=== PATIENT | female | born 1950 | race Caucasian/White ===

== ENCOUNTER 2017-09-04 22:14 | Inpatient (IN) | payer OTHER ==
[~2017-09-04] VITALS: Ht 154.9 cm; Wt 84.1 kg
--- NOTE | ~2017-09-04 | EKG ---
[place], [place] ELECTROCARDIOGRAM REPORT NAME: WILLIAN MENDOZA UNIT #: [id number] ROOM: 511 DOCTOR: EPIPHANY DRAFT REPORT BIRTHDATE: [birth year] [facility] Test Date: 2017-09-04 Test Time: 22:54:52 Pat Name: WILLIAN MENDOZA Department: ER Patient ID: ELOH- Room: 2 Gender: F [employer] Consultant: : 1950 Requested By: BJ ESPINAL Order Number: [id number] Reading MD: Flavio Talbert MD Measurements Intervals [place] Rate: 72 P: 62 SC: 160 QRS: 27 QRSD: 92 T: 43 QT: 429 QTc: 470 Interpretive Statements Sinus rhythm Borderline abnrm T, anterolateral leads Electronically Signed On 09-07-2017 18:46:32 PDT by Flavio Talbert MD CM:EKGRPT:ELECTROCARDIOGRAM REPORT [id number] BJ ESPINAL MD EPIPHANY DRAFT REPORT BJ ESPINAL MD
--- NOTE | ~2017-09-04 | CON ---
[place], [place] REPORT OF CONSULTATION NAME: WILLIAN MENDOZA UNIT #: [id number] ROOM: 511 DOCTOR: INOCENCIO LAI,ROBBIN BIRTHDATE: [birth year] DOS: 09/05/2017 CARDIOLOGY CONSULTATION REASON FOR CONSULTATION: Syncope, abnormal EKG. HISTORY OF PRESENT ILLNESS: The patient is a 66-year-old patient with history of hypertension, and non-morbid obesity, presented to the Emergency Room for "syncope." Reportedly, the patient was at [facility] [employer] sitting in the chair for several hours playing a slot machine. When she tried to get out of her chair to get a drink of water and suddenly felt dizzy and diaphoretic and then she tried to sit down. Her friends helped to sit her up straight in the chair, but she did not completely loss of consciousness. She noted to have some nausea as well as emesis x 1 at that time. EMS was called and the patient continued to have intermittent emesis on her way to the hospital. She underwent routine testing in the Emergency Room and admitted to the hospital for further evaluation. The Cardiology consult because of her syncope and also her abnormal EKG, which showed some nonspecific ST-T changes. At the time of my examination, she is alert and oriented. Denies any chest pain or shortness of breath. No nausea, no headache. No palpitation, no PND, no orthopnea. No cough or hemoptysis. At home, the patient has no other symptoms. No neurologic or musculoskeletal symptoms. No bladder symptoms such as hematuria or dysuria. REVIEW OF SYSTEMS: Review of the 10 systems negative except as mentioned above. PAST MEDICAL HISTORY: 1. Hypertension. 2. Acid reflux. 3. Non-morbid obesity. 4. Osteoarthritis. 5. Migraine headaches. 6. Gastric polyps. 7. Anxiety. PAST SURGICAL HISTORY: History of cholecystectomy, tonsillectomy, adenoidectomy, and tubal ligation. SOCIAL HISTORY: The patient does smoke, but does not drink alcohol, does not use drugs. FAMILY HISTORY: Nil contributory. ALLERGIES: Reviewed. HOME MEDICATIONS: Reviewed. PHYSICAL EXAMINATION: VITAL SIGNS: Blood pressure 114/62, pulse 86, respiratory rate is 18, weight [place], [place] REPORT OF CONSULTATION NAME: WILLIAN MENDOZA UNIT #: [id number] ROOM: [facility] DOCTOR: INOCENCIO LAI,ROBBIN BIRTHDATE: [birth year] 84.1 kilos, BMI 35. GENERAL: Alert, comfortable, in no acute distress. HEAD AND NECK: Neck supple, no distended neck veins, no carotid bruit. HEENT: Pupils are round and equal, No jaundice. Tongue was moist. CHEST: Nontender and symmetrical. LUNGS: Clear to auscultation bilaterally. HEART: Regular rhythm, no S3. No palpable thrills. Grade 1/6 systolic murmur. ABDOMEN: Obese, nontender. Bowel sounds normal. EXTREMITIES: Showed no edema. Distal pulses are palpable. SKIN: Warm and dry. No cyanosis, no clubbing. RECTAL: Deferred. GENITOURINARY: Deferred. NEUROLOGIC: The patient is alert, oriented. No focal neurologic deficit. REVIEW OF THE DIAGNOSTIC TESTS: EKG showed normal sinus rhythm with nonspecific ST-T changes. Pertinent labs include a hemoglobin of 12.8, white cell count 15.9 thousand, platelets 269,000. Potassium 3.7, BUN 7, creatinine 0.84. Her total cholesterol is 197. The TSH was normal at 2.0. IMPRESSION: 1. Syncope, etiology unknown. 2. History of essential hypertension. 3. History of acid reflux. 4. Non-morbid obesity. 5. Right pulmonary nodule, 10 mm. 6. Abnormal EKG with inferior and anterolateral ST changes; nonspecific. RECOMMENDATIONS: 1. She denies any chest pain. So far, she has no orthostasis. 2. Her blood pressures are slightly in the low normal range. I would recommend decreasing her blood pressure medications and discontinue hydrochlorothiazide. 3. The patient counseled to quit smoking as well as diet, exercise, weight loss discussed. 4. I would recommend exercise nuclear stress test to rule out ischemia and also 2D echo for LV function and valvular function as well as outpatient 2-4 week cardiac event monitor to rule out any erica or tachyarrhythmias. 5. Continue to monitor heart rate and blood pressures. 6. She would like to go home and come back as outpatient for above testing. 7. Above treatment plan was discussed with her family members, son who is at bedside. 8. She would like to follow with [facility] due to convenience and it is also closer to her home. [place], [place] REPORT OF CONSULTATION NAME: WILLIAN MENDOZA UNIT #: [id number] ROOM: 511 DOCTOR: INOCENCIO LAI,ROBBIN BIRTHDATE: [birth year] [employer] PAINTER MD CM:CONSTR:REPORT OF CONSULTATION 33 09/28/17 0736 interface
[2017-09-04 22:14] VITALS: BP 115/53
[2017-09-04] MEDS ORDERED: OMEPRAZOLE20 M3 PO (22:27)
[2017-09-04] MEDS ORDERED: LEXAPRO10 MG PO (22:27)
[2017-09-04] MEDS ORDERED: LOSARTAN POTASS50 M1 PO (22:28)
[2017-09-04 23:13] VITALS: BP 128/62
[2017-09-04 23:52] LABS: BASO # 0.1 10*3/uL (0.0-0.1); BASO % 0.2 % (0.0-1.0); EOS % 0.1 % (1.0-4.0); HEMATOCRIT 41.3 % (37.0-47.0); HEMOGLOBIN 13.6 g/dl (12.0-16.0); LYMPH % 8.9 % (27.0-41.0); MEAN CELL VOLUME 92.6 fl (81.0-99.0); MEAN CORPUSCULAR HGB 30.5 pg (27.0-31.0); MEAN CORPUSCULAR HGB CONC 32.9 g/dl (33.0-37.0); MEAN PLATELET VOLUME 9.1 fl (9.6-12.3); MONO # 1.2 10*3/uL (0.1-1.0); MONO % 5.5 % (3.0-9.0); NEUT # 18.9 10*3/uL (2.3-7.9); NEUT % 84.9 % (47.0-73.0); PLATELET COUNT AUTOMATED 273 10*3/uL (130-400); RED BLOOD COUNT 4.46 10*6/uL (4.10-5.10); RED CELL DISTRI WIDTH 13.3 % (0-14.5); WHITE BLOOD COUNT 22.2 10*3/uL (4.8-10.8)
[2017-09-05] VITALS (7 sets, daily range): BP systolic 114–143; BP diastolic 56–71
[2017-09-05 00:01] LABS: INTERNATIONAL NORM RATIO 0.9 (2.0-3.5)
[2017-09-05 00:13] LABS: ALBUMIN 3.2 gm/dl (3.1-4.5); ALKALINE PHOSPHATASE 76 U/L (45-117); BUN 9 mg/dl (7-24); CHLORIDE 105 mmol/L (98-107); CREATININE 0.86 mg/dL (0.55-1.02); LIPASE 206 U/L (73-393); POTASSIUM 3.5 mmol/L (3.5-5.1); SGOT/AST 10 IU/L (3-35); SGPT/ALT 23 U/L (12-78); SODIUM 140 mmol/L (136-145); TOTAL PROTEIN 6.9 gm/dL (6.4-8.2)
[2017-09-05 00:14] LABS: ETHYL ALCOHOL < 3.0 mg/dl (<3); TROPONIN I < 0.015 ng/ml (<0.045)
[2017-09-05 00:25] LABS: BILIRUBIN NEGATIVE (NEGATIVE); BLOOD NEGATIVE (NEGATIVE); CLARITY CLEAR (CLEAR); COLOR YELLOW (YELLOW); GLUCOSE NEGATIVE (NEGATIVE); KETONE NEGATIVE (NEGATIVE); LEUKO ESTERASE NEGATIVE (NEGATIVE); NITRITE NEGATIVE (NEGATIVE); PH 5.5 (5.0-9.0); SPECIFIC GRAVITY <= 1.005 (1.005-1.030); UROBILINOGEN 0.2 E.U./dl (0.2-1.0)
[2017-09-05 00:37] LABS: URINE AMPHETAMINES < 1000 (1000ng/ml); URINE BARBITURATES < 200 (200ng/ml); URINE BENZODIAZEPINES < 200 (200ng/ml); URINE CANNABINOIDS (THC) < 50 (50ng/ml); URINE COCAINE < 300 (300ng/ml); URINE METHADONE < 300 (300ng/ml); URINE OPIATES < 300 (300ng/ml)
[2017-09-05 00:42] LABS: URINE PHENCYCLIDINE < 25 (25ng/ml)
[2017-09-05 00:43] LABS: EPITHELIAL CELLS 0-2; RBC 0-2 rbc/hpf (0-2); WBC 0-2 wbc/hpf (0-5)
[2017-09-05 02:09] LABS: BASO % 0.2 % (0.0-1.0); EOS % 0.1 % (1.0-4.0); HEMATOCRIT 43.1 % (37.0-47.0); HEMOGLOBIN 14.1 g/dl (12.0-16.0); LYMPH # 1.8 10*3/uL (1.3-4.4); LYMPH % 9.1 % (27.0-41.0); MEAN CELL VOLUME 91.7 fl (81.0-99.0); MEAN CORPUSCULAR HGB CONC 32.7 g/dl (33.0-37.0); MEAN PLATELET VOLUME 8.9 fl (9.6-12.3); MONO # 0.8 10*3/uL (0.1-1.0); MONO % 3.8 % (3.0-9.0); NEUT # 16.9 10*3/uL (2.3-7.9); NEUT % 85.7 % (47.0-73.0); PLATELET COUNT AUTOMATED 274 10*3/uL (130-400); RED CELL DISTRI WIDTH 13.3 % (0-14.5); WHITE BLOOD COUNT 19.6 10*3/uL (4.8-10.8)
[2017-09-05 05:41] LABS: BUN 7 mg/dl (7-24); CHLORIDE 111 mmol/L (98-107); CHOLESTEROL 193 mg/dL (<200); CREATININE 0.84 mg/dL (0.55-1.02); FREE T4 0.85 ng/dl (0.76-1.46); HDL CHOLESTEROL 40 mg/dl (40-60); LDL CHOLESTEROL 136 mg/dL (9-159); PHOSPHOROUS 2.5 mg/dL (2.5-4.9); POTASSIUM 3.7 mmol/L (3.5-5.1); SGOT/AST 8 IU/L (3-35); SGPT/ALT 21 U/L (12-78); SODIUM 145 mmol/L (136-145); TOTAL PROTEIN 6.1 gm/dL (6.4-8.2); TRIGLYCERIDES 86 mg/dl (<150); VLDL CHOLESTEROL 17 mg/dL (6-40)
[2017-09-05 05:46] LABS: BASO % 0.2 % (0.0-1.0); EOS % 0.2 % (1.0-4.0); HEMATOCRIT 40.2 % (37.0-47.0); HEMOGLOBIN 12.8 g/dl (12.0-16.0); LYMPH # 2.7 10*3/uL (1.3-4.4); LYMPH % 16.7 % (27.0-41.0); MEAN CELL VOLUME 92.6 fl (81.0-99.0); MEAN CORPUSCULAR HGB 29.5 pg (27.0-31.0); MEAN CORPUSCULAR HGB CONC 31.8 g/dl (33.0-37.0); MEAN PLATELET VOLUME 9.3 fl (9.6-12.3); MONO # 0.7 10*3/uL (0.1-1.0); MONO % 4.1 % (3.0-9.0); NEUT # 12.5 10*3/uL (2.3-7.9); NEUT % 78.5 % (47.0-73.0); PLATELET COUNT AUTOMATED 267 10*3/uL (130-400); RED BLOOD COUNT 4.34 10*6/uL (4.10-5.10); RED CELL DISTRI WIDTH 13.4 % (0-14.5); WHITE BLOOD COUNT 15.9 10*3/uL (4.8-10.8)
[2017-09-05 05:47] LABS: ALKALINE PHOSPHATASE 72 U/L (45-117)
[2017-09-05 05:57] LABS: ACT PARTIAL THROMBO TIME 21.1 SECONDS (20.8-31.5); INTERNATIONAL NORM RATIO 0.9 (2.0-3.5)
[2017-09-05 07:47] LABS: VITAMIN D, 25-HYDROXY 24.3 ng/mL (30-100)
[2017-09-05] MEDS ORDERED: HYDROCHLOROTH12.5 M3 PO (10:44)
[2017-09-05] MEDS ORDERED: ZOLMITRIPTAN PO (20:28)
[2017-09-06] VITALS: BP 120/55
[2017-09-06 08:00] VITALS: BP 137/69
[2017-09-06 12:00] VITALS: BP 112/63
[2017-09-06] MEDS ORDERED: LOSARTAN POTASS25 M1 PO (14:38)
== END 2017-09-06 15:11 | disposition home or self-care (01) | DRG 312 ==
LOC: ED 22:14 → EDHOLD 09-05 01:54 → 5E 09-05 02:04
PROVIDERS: Emergency Medicine Emergency Medical Services; Internal Medicine
DX: R55 Syncope and collapse (principal); E87.2 Acidosis; E44.1 Mild protein-calorie malnutrition; K21.9 Gastro-esophageal reflux disease without esophagitis; E83.51 Hypocalcemia; E66.9 Obesity, unspecified; F41.1 Generalized anxiety disorder; I10 Essential (primary) hypertension; G43.909 Migraine, unspecified, not intractable, without status migrainosus; F17.200 Nicotine dependence, unspecified, uncomplicated; R91.1 Solitary pulmonary nodule; K31.7 Polyp of stomach and duodenum; M19.071 Primary osteoarthritis, right ankle and foot; Z68.35 Body mass index [BMI] 35.0-35.9, adult; Z90.49 Acquired absence of other specified parts of digestive tract; Z98.51 Tubal ligation status; Z82.49 Family history of ischemic heart disease and other diseases of the circulatory system; Z88.5 Allergy status to narcotic agent; Z88.9 Allergy status to unspecified drugs, medicaments and biological substances; Z71.6 Tobacco abuse counseling